=== PATIENT | male | born 1945 | race Hispanic/Latino ===

== ENCOUNTER 2024-06-25 12:11 | Day surgery (SDC) | payer MEDICARE ==
[2024-06-25] MEDS ORDERED: PROPOFOL 20 ML ONE (12:39)
[2024-06-25] MEDS ORDERED: fentaNYL PF 100 MCG/2 ML SYRINGE ONE (12:39)
[2024-06-25] MEDS ORDERED: Lidocaine 1% PF 5 ML VIAL ONE (13:17)
== END 2024-06-25 14:37 | disposition home or self-care (01) ==
LOC: SDC 12:11
PROVIDERS: ATTEND Internal Medicine Gastroenterology
PROC: 0DC18ZZ Extirpation of Matter from Upper Esophagus, Via Natural or Artificial Opening Endoscopic (ICD-10-PCS; principal; 2024-06-25)
DX: T18.198A Other foreign object in esophagus causing other injury, initial encounter (principal); I10 Essential (primary) hypertension; E78.5 Hyperlipidemia, unspecified; Z86.0100 Personal history of colon polyps, unspecified; Z86.73 Personal history of transient ischemic attack (TIA), and cerebral infarction without residual deficits; Z79.82 Long term (current) use of aspirin; Z79.899 Other long term (current) drug therapy; W44.B9XA Other plastic object entering into or through a natural orifice, initial encounter
CPT/HCPCS: 43247; J2704